=== PATIENT | female | born 1975 | race Two or more races ===

== ENCOUNTER 2018-08-28 05:35 | Day surgery (SDC) | payer OTHER | END 2018-08-28 10:35 | disposition home or self-care (01) | LOC: AMB-ENDOS 05:35 | DX: K63.5 Polyp of colon (principal) ==

== ENCOUNTER 2018-10-30 07:57 | Emergency (ER) | payer OTHER ==
[~2018-10-30] VITALS: Ht 167.6 cm; Wt 131.5 kg
[2018-10-30] MEDS ORDERED: LISINOPRIL20 MG (08:25)
[2018-10-30] MEDS ORDERED: METFORMIN HCL500 M2 (08:25)
== END 2018-10-31 03:08 | disposition home or self-care (01) ==
LOC: ER 07:57
DX: K64.4 Residual hemorrhoidal skin tags (principal); R10.2 Pelvic and perineal pain

== ENCOUNTER → 2019-03-05 | Outpatient (CLI) | payer OTHER ==
[~2019-03-05] MED LIST: LISINOPRIL20 MG; METFORMIN HCL500 M2
== END | disposition home or self-care (01) ==
LOC: TOM 09:15
DX: K62.89 Other specified diseases of anus and rectum (principal); K62.5 Hemorrhage of anus and rectum; K61.2 Anorectal abscess; K64.4 Residual hemorrhoidal skin tags; K61.0 Anal abscess; K56.50 Intestinal adhesions [bands], unspecified as to partial versus complete obstruction

== ENCOUNTER 2019-03-26 21:15 | Inpatient (IN) | payer OTHER ==
[~2019-03-26] VITALS: Ht 167.6 cm; Wt 131.5 kg
--- NOTE | 2019-03-26 22:22 | NUR ---
PACIENTE ALERTA Y ORIENTADA X3 ES REFERIDA DE LA OFICCINA DEL DR.NICOLAS MIKE PARA EVALUACION MEDICA Y TRATAMIENTO, SE UBICA EN OBSERVACION.
--- NOTE | 2019-03-26 23:31 | NUR ---
PACIENTE ALERTA Y ORIENTADA EN FREIDA OC ESFERAS, ES ORIENTADA SOBRE ORDENES MEDICAS, REFIERE ENTENDER. SE COLECTAN MUESTRAS DE SONALI, SE CANALIZ VENA, SE REALIZA EKG, PLACA DE PECHO REALIZADA, PENDIENTE CT SCAN DE PELVIS.
--- NOTE | 2019-03-27 01:31 | NUR ---
PACIENTE REFIERE SER ALERGICA A LOS MARISCOS Y SER ASMATICA, SE ADMINISTRA SOLUMEDROL 125 MG IV Y BENADRYL 50 MG IV PARA REALIZAR CT SCAN CON CONTRASTE POR VENA.
--- NOTE | 2019-03-27 07:15 | NUR ---
SE RECIBE DE TURNO ANTERIOR ALERTA Y ORIENTADA EN TIEMPO LUGAR YPERSONA AL MOMENTO SIN COMPANIA DE FAMILIAR. PT EN CAMA CON BARANDAS ELEVADAS Y TIMBRE ACCESIBLE. PT EN ESPERA DE SER EVALUADA POR DR MONTSERRAT MIKE.
[2019-03-30] MEDS ORDERED: CIPRO500 MG PO (10:03)
[2019-03-30] MEDS ORDERED: INTESTINEX680 M1 PO (10:03)
[2019-03-30] MEDS ORDERED: FLAGYL500MG PO (10:03)
== END 2019-03-30 11:00 | disposition home or self-care (01) | DRG 330 ==
LOC: ER 21:15 → SURG 03-27 07:10
PROVIDERS: ADMIT Surgery
PROC: 3E0T3BZ Introduction of Anesthetic Agent into Peripheral Nerves and Plexi, Percutaneous Approach (ICD-10-PCS; 2019-03-27)
PROC: BW21Y0Z Computerized Tomography (CT Scan) of Abdomen and Pelvis using Other Contrast, Unenhanced and Enhanced (ICD-10-PCS; 2019-03-27)
PROC: 0D9P00Z Drainage of Rectum with Drainage Device, Open Approach (ICD-10-PCS; principal; 2019-03-27 14:30)
DX: K61.2 Anorectal abscess (principal); J45.21 Mild intermittent asthma with (acute) exacerbation; I10 Essential (primary) hypertension; B96.1 Klebsiella pneumoniae [K. pneumoniae] as the cause of diseases classified elsewhere

== ENCOUNTER 2020-11-07 05:55 | Day surgery (SDC) | payer OTHER ==
[~2020-11-07 05:55] MED LIST changes: +CIPRO500 MG PO; +FLAGYL500MG PO; +INTESTINEX680 M1 PO
[2020-11-07] MEDS ORDERED: PERCOCET 5-3251 EACH PO (12:00)
== END 2020-11-07 17:45 | disposition home or self-care (01) ==
LOC: CIR.AMB 05:55
PROVIDERS: ATTEND Surgery
DX: K60.1 Chronic anal fissure (principal)

== ENCOUNTER 2021-02-20 05:40 | Day surgery (SDC) | payer OTHER ==
[~2021-02-20 05:40] MED LIST changes: +PERCOCET 5-3251 EACH PO
[2021-02-20] MEDS ORDERED: COLACE100 MG PO (09:17)
[2021-02-20] MEDS ORDERED: PERCOCET 5-3251 EACH PO (09:17)
[2021-02-20] MEDS ORDERED: METRONIDAZOLE500 MG PO (09:17)
[2021-02-20] MEDS ORDERED: CIPRO500 MG PO (09:17)
== END 2021-02-20 13:20 | disposition home or self-care (01) ==
LOC: CIR.AMB 05:40
PROVIDERS: ATTEND Surgery
DX: K60.1 Chronic anal fissure (principal); Z20.822 Contact with and (suspected) exposure to COVID-19